=== PATIENT | female | born 1975 | race American Indian/Alaskan Native ===

== ENCOUNTER 2021-08-30 06:05 | Emergency (ER) | payer SELFPAY ==
--- NOTE | 2021-08-30 10:54 | Emergency Department Report ---
ED Upper Extremity Inj HPI - General Chief Complaint: Extremity Injury, Upper Stated Complaint: RT SHOULDER INJURY Time Seen by Provider: 08/30/21 10:39 Source: patient Mode of arrival: Ambulatory Limitations: No Limitations - History of Present Illness Initial Comments: Patient is a 46-year-old female that comes to the ER after having a incident while playing softball where she states a softball bat hit her right shoulder. She is complaining of right shoulder pain. She denies any other injury. She is ambulatory neurologically and neurovascularly intact. With normal vital signs. Complaint: Injury to:: right -: Sudden, days(s) Other Extremity Injury: Shoulder: Right Other Injuries: none Handedness: right Place: home Improves With: none Worsens With: none Associated Symptoms: denies other symptoms - Related Data Previous Rx's Medication Instructions Recorded Last Taken Type Ibuprofen [Motrin] 800 mg PO Q8HR PRN #30 tablet 08/30/21 Unknown Rx Allergies Allergy/AdvReac Type Severity Reaction Status Date / Time No Known Allergies Allergy Verified 08/30/21 06:13 ED Review of Systems ROS: Stated complaint: RT SHOULDER INJURY Other details as noted in HPI Comment: All other systems reviewed and negative ED Past Medical Hx - Past Medical History Previous Medical History?: No - Surgical History Past Surgical History?: No - Family History Family history: no significant - Social History Smoking Status: Never Smoker Substance Use Type: None - Medications Home Medications: Home Medications Medication Instructions Recorded Confirmed Last Taken Type Ibuprofen [Motrin] 800 mg PO Q8HR PRN #30 tablet 08/30/21 Unknown Rx ED Physical Exam - General Limitations: No Limitations General appearance: alert, in no apparent distress - Head Head exam: Present: atraumatic, normocephalic - Eye Eye exam: Present: normal appearance - ENT ENT exam: Present: mucous membranes moist - Neck Neck exam: Present: normal inspection - Respiratory Respiratory exam: Present: normal lung sounds bilaterally. Absent: respiratory distress - Cardiovascular Cardiovascular Exam: Present: regular rate, normal rhythm. Absent: systolic murmur, diastolic murmur, rubs, gallop - GI/Abdominal GI/Abdominal exam: Present: soft, normal bowel sounds - Extremities Exam Extremities exam: Present: normal inspection - Expanded Upper Extremity Exam Right General: Present: other Shoulder Exam: Present: tenderness, swelling Upper Arm exam: Present: tenderness, swelling Elbow exam: Present: normal inspection - Back Exam Back exam: Present: normal inspection - Neurological Exam Neurological exam: Present: alert, oriented X3 - Psychiatric Psychiatric exam: Present: normal affect, normal mood - Skin Skin exam: Present: warm, dry, intact, normal color. Absent: rash ED Course Vital Signs 08/30/21 06:09 Temperature 98.1 F Pulse Rate 109 H Respiratory 17 Rate Blood Pressure 105/69 O2 Sat by Pulse 98 Oximetry ED Medical Decision Making - Radiology Data Radiology results: report reviewed, image reviewed FX - Medical Decision Making Vital Signs (72 hours) 08/30/21 06:09 Temperature 98.1 F Pulse Rate 109 H Respiratory 17 Rate Blood Pressure 105/69 O2 Sat by Pulse 98 Oximetry Patient medicated for pain. A sling and swath has been placed. Patient neurovascularly intact. Patient being discharged home with discharge plan of care including diet, medications activity and follow-up. She verbalizes understanding of plan of care including the importance of following up with Ortho. - Differential Diagnosis RO FX Critical care attestation.: If time is entered above; I have spent that time in minutes in the direct care of this critically ill patient, excluding procedure time. ED Disposition Clinical Impression: Shoulder fracture, right Qualifiers: Encounter type: initial encounter Fracture type: closed Qualified Code(s): S42.91XA - Fracture of right shoulder girdle, part unspecified, initial encounter for closed fracture Disposition: 01 HOME / SELF CARE / HOMELESS Is pt being admited?: No Does the pt Need Aspirin: No Condition: Stable Instructions: How to Use a Shoulder Immobilizer Additional Instructions: REST ICE ELEVATE ARM TYLENOL FOR PAIN MOTRIN FOR PAIN IMMOBILIZER UNTIL SEEN BY ORTHO FOLLOW UP WITH ORTHO SHELIA REFERRAL BELOW Prescriptions: Ibuprofen [Motrin] 800 mg PO Q8HR PRN #30 tablet PRN Reason: Pain, Moderate (4-6) Referrals: ALISHA ANDINO MD [Staff Physician] - 3-5 Days Forms: Work/School Release Form(ED) Time of Disposition: 11:21
--- NOTE | 2021-08-30 11:11 | XRay Report ---
RIGHT SHOULDER 3 VIEWS INDICATION: pain. COMPARISON: None IMPRESSION: Mildly displaced fracture is identified through the middle third of the clavicle with 1. 3 cm inferior displacement of the distal fragment. The remaining bony structures are intact. There i s anatomic alignment at the AC joint and glenohumeral joint. Signer Name: Werner Tavarez Jr, MD Signed: 08/30/2021 11:07 AM Workstation Name: [id number]
[2021-08-30] MEDS ORDERED: IBUPROFEN 800 MG TAB PO ONE (11:13)
[2021-08-30] MEDS ORDERED: CYCLOBENZAPRINE 10 MG TAB PO ONE (11:22)
[2021-08-30 11:54] VITALS: BP 122/78
== END 2021-08-30 11:53 | disposition home or self-care (01) ==
LOC: ED 06:05
DX: S42.91XA Fracture of right shoulder girdle, part unspecified, initial encounter for closed fracture (principal); X58.XXXA Exposure to other specified factors, initial encounter; Y93.89 Activity, other specified; Y92.89 Other specified places as the place of occurrence of the external cause; Y99.8 Other external cause status
CPT/HCPCS: 99283